=== PATIENT | male | born 1995 | race Two or more races ===

== ENCOUNTER 2024-11-02 15:16 | Emergency (ER) | payer OTHER ==
[~2024-11-02] VITALS: Ht 180.3 cm; Wt 114.4 kg
[2024-11-02] MEDS ORDERED: IBUP-1455 PO (16:40)
[2024-11-02] MEDS ORDERED: CYCL-837 PO (16:40)
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
[2024-11-02 16:48] VITALS: BP 155/82; PULSE 84; RESP 14; TEMP 98.3; O2SAT 97
== END 2024-11-02 16:52 | disposition home or self-care (01) ==
LOC: ER 15:16
DX: F07.81 Postconcussional syndrome (principal); V49.9XXA Car occupant (driver) (passenger) injured in unspecified traffic accident, initial encounter; Y93.89 Activity, other specified; Y92.410 Unspecified street and highway as the place of occurrence of the external cause; Y99.8 Other external cause status